=== PATIENT | female | born 1945 | race Two or more races ===

== ENCOUNTER → 2024-07-24 | Outpatient (CLI) | payer MEDICARE, BC, SELFPAY ==
--- NOTE | 2024-07-24 09:30 | XR_ITS ---
Examination: Screening digital mammography, bilateral Computer aided detection 3-D breast Tomosynthesis, bilateral Date and time of exam: July 24, 2024 0850 hours Compared to mammograms dating to March 17, 2015 Indication: Screening Technique: Nonmagnified MLO, CC views of the breasts to been obtained, reconstructed from 3-D Tomosynthesis images. R2 computer aided detection program utilized for evaluation of suspicious masses and/or abnormal calcifications. 3-D Tomosynthesis images obtained. Findings: Scattered areas of fibroglandular density. Breast biopsy marker retroareolar region right breast Benign calcifications No interval suspicious masses Impression: BI-RADS category II: Benign Findings. Recommend 1 year follow-up mammogram.
== END | disposition home or self-care (01) ==
LOC: CDIM 08:41
PROVIDERS: Referring Provider Family Medicine; Visit Provider Family Medicine
DX: Z12.31 Encounter for screening mammogram for malignant neoplasm of breast (principal); R92.323 Mammographic fibroglandular density, bilateral breasts; R92.1 Mammographic calcification found on diagnostic imaging of breast
CPT/HCPCS: 77063; 77067

== ENCOUNTER → 2024-09-08 | Outpatient (CLI) | payer MEDICARE, BC, SELFPAY ==
--- NOTE | 2024-09-08 14:17 | XR_ITS ---
Examination: CT brain head without contrast. 2-D sagittal coronal reconstructions Date and time of exam:September 08, 2024 1500 hours INDICATIONS: Patient fell today with injury to the left side of the head, head pain COMPARISON: November 13, 2021 CTDI: vol (mGy):45 DLP: (mGycm):835 Technique: Multiple CT axial sections of the brain have been obtained, 5 mm slice thickness. Contrast has not been administered. 2-D sagittal, coronal reconstructions have been obtained Low dose protocols were performed. One or more of the following dose reduction techniques were used; automated exposure control, adjustment of the mA and/or KV according to patient size, use of iterative reconstruction technique. Findings: No significant ventricular enlargement. Intra-axial or extra-axial hemorrhage density is not seen. No mass effect or midline shift Basal cisterns are not remarkable. Fourth ventricle is midline. Cranial vault intact. Impression: Negative for acute hemorrhage, mass effect or midline shift
--- NOTE | 2024-09-08 14:28 | XR_ITS ---
Examination: PA lateral chest 2 views TECHNIQUE: Upright PA lateral chest 2 views Exam date and time: September 08, 2024 1441 hours INDICATIONS: Patient fell today with into the chest, chest pain FINDINGS: Marked size No pneumothorax. Clavicles, ribs, thoracic vertebral bodies appear intact IMPRESSION: No pneumothorax pulmonary contusion or hemothorax
--- NOTE | 2024-09-08 14:28 | XR_ITS ---
Examination: Hand, left 3 views Technique: Hand AP, oblique, lateral 3 views Date and time of exam: September 08, 2024 1451 hours INDICATIONS: Patient fell today with injury to the hand, hand pain. FINDINGS: Severe osteopenia No acute fracture No dislocation IMPRESSION: Severe osteopenia No acute fracture Given the severe osteopenia, suggest short-term follow-up hand films to assess for occult fracture as clinically warranted
== END | disposition home or self-care (01) ==
PROVIDERS: PCP Family Medicine; Referring Provider Nurse Practitioner Family; Visit Provider Nurse Practitioner Family
DX: S09.90XA Unspecified injury of head, initial encounter (principal); S69.92XA Unspecified injury of left wrist, hand and finger(s), initial encounter; S29.9XXA Unspecified injury of thorax, initial encounter; W18.30XA Fall on same level, unspecified, initial encounter; M85.842 Other specified disorders of bone density and structure, left hand
CPT/HCPCS: 70450; 71046; 73130

== ENCOUNTER → 2024-09-30 | Outpatient (CLI) | payer MEDICARE, BC, SELFPAY ==
--- NOTE | 2024-09-30 13:20 | XR_ITS ---
Examination: Bone densitometry Date and time of exam:September 30, 2024 1331 hours INDICATIONS: Menopause age 55, hysterectomy age 56, diabetic diagnosis calcium and vitamin D 41 years, personal history osteopenia Technique: Lumbar spine and hip total bone mineralization values of an calculated. Peak reference and age match control results have been displayed. Findings: Lumbar spine total bone mineralization is0.851 gm/cm2. This is 1.8 standard deviations below peak reference. This is 0.8 standard deviations above age-matched controls. Hip total bone mineralization is 0.796 gm/cm2 This is 1.2 standard deviations below peak reference. This is 0.8 standard deviations above age-matched controls Impression: There is osteopenia based on lumbar spine measurements. There is osteopenia based on hip measurements Lumbar mineralization is increased 1.4% compared with October 25, 2018 Hip mineralization is increased 1.3% compared with October 25, 2018
--- NOTE | 2024-09-30 13:28 | XR_ITS ---
Examination: Hand, left 3 views Technique: Hand AP, oblique, lateral 3 views Date and time of exam: October 09, 2024 1451 hours INDICATIONS: Patient fell 3 weeks ago with injury to the hand, hand pain FINDINGS: Prominent osteopenia No arthritic change involving the interphalangeal joints No fracture No cortical bone destruction No opaque foreign body IMPRESSION: No fracture
== END | disposition home or self-care (01) ==
LOC: CDIM 13:09
PROVIDERS: PCP Nurse Practitioner Family; Referring Provider Nurse Practitioner Family; Visit Provider Nurse Practitioner Family
DX: M85.89 Other specified disorders of bone density and structure, multiple sites (principal); S69.92XA Unspecified injury of left wrist, hand and finger(s), initial encounter; W19.XXXA Unspecified fall, initial encounter
CPT/HCPCS: 73130; 77080

== ENCOUNTER 2025-04-05 16:52 | Emergency (ER) | payer MEDICARE, BC, SELFPAY ==
[2025-04-05 16:54] VITALS: BMI 19.8
--- NOTE | 2025-04-05 16:57 | XR_ITS ---
Examination: Forearm, left, 2 views. Technique: Forearm, AP, lateral 2 views Date and time of exam: April 05, 2025, 1718 hours INDICATIONS: Patient fell today with injury to the forearm, forearm pain. FINDINGS: Acute nondisplaced fracture distal radial metaphysis. Shafts of the radius and ulna are intact IMPRESSION: Acute nondisplaced fracture distal radial metaphysis.
--- NOTE | 2025-04-05 16:57 | XR_ITS ---
Examination: Left wrist 2 views TECHNIQUE: AP lateral left wrist 2 views Date and time: April 05, 2025, 1721 hours INDICATIONS: Injury to this today, wrist pain FINDINGS: Acute mildly impacted fracture distal radial metaphysis Carpal bones intact IMPRESSION: Acute mildly impacted nondisplaced fracture distal radial metaphysis
[2025-04-05 17:03] VITALS: BP 185/70; PULSE 71; RESP 18; TEMP 36.7; O2SAT 98; BMI 19.1
--- NOTE | 2025-04-05 17:44 | XR_ITS ---
Examination: Hand, left 3 views Technique: Hand AP, oblique, lateral 3 views Date and time of exam: April 05, 2025, 1747 hours INDICATIONS: Patient fell today with injury to the hand, hand pain. FINDINGS: Acute mildly impacted fracture distal radial metaphysis, without significant displacement. Carpal bones metacarpals and digits appear intact Significant osteopenia. IMPRESSION: Acute impacted fracture distal radial metaphysis
--- NOTE | 2025-04-05 19:01 | PD.EDRME ---
Rapid Medical Screening Exam RME Arrival date/time: 04/05/25 16:52 Chief Complaint: Hand/Wrist Problems Time Seen by Provider: 04/05/25 17:24 Vital signs: Vital Signs Temperature 98.0 F 04/05/25 17:03 Pulse Rate 71 04/05/25 17:03 Respiratory Rate 18 04/05/25 17:03 Blood Pressure 185/70 H 04/05/25 17:03 Pulse Oximetry (%) 98 04/05/25 17:03 Oxygen Delivery Method Room Air 04/05/25 17:03 Vital signs reviewed by provider: Yes RME Narrative: Patient is a 80-year-old female is in the emerged from with concerns for left wrist pain. Patient stated that she tripped and fell landed onto her hand. Presents today with left hand and left wrist pain. Patient takes aspirin does not take any blood thinners. Did not hit her head did not lose consciousness.
--- NOTE | 2025-04-05 19:58 | EDNOTE_ITS ---
Upper Extremity Injury RME/HPI General Chief Complaint: Hand/Wrist Problems Stated Complaint: INJURY TO LEFT WRIST/FOREARM YESTERDAY Time Seen by Provider: 04/05/25 17:24 Arrival date/time: 04/05/25 16:52 This is a case of 80-year-old female who came in the emergency room due to left wrist and hand pain with swelling since yesterday history of present illness started yesterday patient was tripped and fell on his commode and landed on his left wrist and hand patient noted to have severe pain on the left wrist and left hand this patient decided to sought consult here in the emergency room patient is not taking any blood thinner only aspirin patient denies any head neck chest or abdominal injury no loss of conscious denies any numbness weakness or tingling sensation Limitations: no limitations RME / HPI RME / HPI narrative: Patient is a 80-year-old female is in the emerged from with concerns for left wrist pain. Patient stated that she tripped and fell landed onto her hand. Presents today with left hand and left wrist pain. Patient takes aspirin does not take any blood thinners. Did not hit her head did not lose consciousness. Related Data Previous Rx's ?Medication ?Instructions ?Recorded tramadol 25 mg tablet 25 mg PO Q6H PRN pain #10 ta bs 04/05/25 Allergies Allergy/AdvReac Type Severity Reaction Status Date / Time No Known Allergies Allergy Verified 04/05/25 16:56 Review of Systems Review of Systems Systems Reviewed: All systems reviewed, normal except as documented Constitutional Constitutional: Reports system reviewed and no additional complaints, except as documented and Reports as per HPI Cardiovascular Cardiovascular: Reports system reviewed and no additional complaints, except as documented and Reports as per HPI Respiratory Respiratory: Reports system reviewed and no additional complaints, except as documented and Reports as per HPI Gastrointestinal Gastrointestinal: Reports system reviewed and no additional complaints, except as documented and Reports as per HPI Genitourinary Genitourinary: Reports system reviewed and no additional complaints, except as documented and Reports as per HPI Musculoskeletal Musculoskeletal: Reports system reviewed and no additional complaints, except as documented, Reports as per HPI and Reports other (Left wrist and hand pain) Integumentary/Breasts Skin/Breast: Reports system reviewed and no additional complaints, except as documented and Reports as per HPI Past Medical History Past Medical History NEUROLOGIC: Negative Neurological Disorders or Seizures CARDIAC: Positive Cardiac Disorders, Hypercholesterolemia and Hypertension; Negative Congestive Heart Failure RESPIRATORY: Negative Chronic Obstructive Pulmonary Disease (COPD) GASTROINTESTINAL: Positive Gastrointestinal Disorders GENITOURINARY: Negative Genitourinary Disorders or Renal Disease REPRODUCTIVE: Negative Pelvic Inflammatory Disease MUSCULOSKELETAL: Negative Musculoskeletal Disorders ENDOCRINE: Positive Endocrine Disorders and Diabetes Mellitus Type 2; Negative Diabetes Mellitus Type 1 HEMATOLOGIC: Negative Blood Disorders OTHER HISTORY: Negative Autoimmune Disease, Anesthesia Reactions, MRSA, Clostridium Difficile or Cancer Surgical History SURGICAL: Positive Hysterectomy Social History SMOKING STATUS: Never smoker ED Exam General Limitations: Present no limitations General appearance: Present alert, in no apparent distress and other (Patient is awake alert oriented not in distress nontoxic looking well-hydrated well-nou rished) Head Head exam: Present atraumatic Eye Eye exam: Present normal appearance, PERRL and EOMI ENT ENT exam: Present normal exam, normal oropharynx and mucous membranes moist Neck Neck exam: Present normal inspection, full ROM and trachea midline; Absent tenderness Chest Chest inspection: Present normal inspection and symmetric chest wall rise; Abse nt tenderness Respiratory Respiratory exam: Present normal lung sounds bilaterally Cardiovascular Cardiovascular exam: Present regular rate, normal rhythm and normal heart sounds; Absent bradycardia, tachycardia, irregular rhythm, systolic murmur or diastolic murmur Abdominal Exam Abdominal exam: Present soft and normal bowel sounds Extremities Exam Extremities exam: Present normal inspection and full ROM Expanded Upper Extremity Exam Forearm/Wrist exam: Present tenderness, swelling and other (Patient noted to have moderate tenderness and swelling no crepitation no deformity no redness no cellulitis ROM limited neurovascular intact); Absent abrasion, laceration, ecchymosis, deformity, crepitus, dislocation, erythema, tenderness over anatomical snuff box or pain with axial thumb loading Hand exam: Present tenderness, swelling and other (Moderate tenderness on the dorsal aspect of the left hand with mild swelling ROM limited due to pain neurovascular intact no snuffbox tenderness); Absent abrasion, laceration, skin avulsion, ecchymosis, crepitus, dislocation, erythema, amputation, nail avulsion or subungual hematoma Back Exam Back exam: Present normal inspection and full ROM Neurological Exam Neurological exam: Present alert, oriented X3, CN II-XII intact, normal gait and reflexes normal; Absent motor sensory deficit Psychiatric Psychiatric exam: Present normal affect and normal mood Skin Skin exam: Present warm, dry, intact and normal color Course Quality Measures none Orders Category Date Time Status XR forearm LT 2V Stat Exams 04/05/25 16:57 Completed XR hand comp LT min 3V Stat Exams 04/05/25 17:44 Completed XR wrist LT 2V Stat Exams 04/05/25 16:57 Completed Vital Signs Vital signs: Vital Signs Temperature 98.0 F 04/05/25 17:03 Pulse Rate 71 04/05/25 17:03 Respiratory Rate 18 04/05/25 17:03 Blood Pressure 185/70 H 04/05/25 17:03 Pulse Oximetry (%) 98 04/05/25 17:03 Oxygen Delivery Method Room Air 04/05/25 17:03 Patient oxygen saturation is 98% in room air BP was rechecked and noted to be 145/70 Extremity Injury MDM Narrative MDM Narrative:: This is a case of 80-year-old female who came in the emergency room due to left wrist and hand pain with swelling since yesterday history of present illness started yesterday patient was tripped and fell on his commode and landed on his left wrist and hand patient noted to have severe pain on the left wrist and left hand this patient decided to sought consult here in the emergency room patient is not taking any blood thinner only aspirin patient denies any head neck chest or abdominal injury no loss of conscious denies any numbness weakness or tingling sensation patient is awake alert oriented not in distress nontoxic looking well-hydrated well-nourished there is a moderate tenderness on palpation on the left wrist and left hand with mild swelling with mild bruising no crepitation no deformity no redness ROM limited neurovascular intact no snuffbox tenderness on the left hand x-ray showed a nondisplaced radial metaphysis fracture of the left wrist a splint and sling was applied patient tolerated well neurovascular intact RICE treatment will continue by the patient and by the daughter at home they are well-informed that they need to see an orthopedic surgeon tomorrow for reevaluation of the fracture they will follow-up with PCP in 2 days for reevaluation worsening symptoms or any emergent concern return to the emergency room immediately or call 911 Patient was discharged with comfortable condition walking with stable gait. Patient verbalized no further complains explained diagnosis and answered patient question. Patient is comfortable with the proposed management plan including the need to follow up with his/her primary care physician and any specialist if applicable Discussed patient for any urgent condition or worsening sx, He/She needed to go to emergency room immediately or call 911. Patient acknowledge the responsibility to follow up as instructed and to monitor her/his symptoms. For any persistence of the symptoms for more than 3-5 days return precaution advised. Discussed the result of the test and was given printed discharge instruction Patient data External records reviewed:: [facility] previous records Clinical information provided by:: patient and family Social determinants that could affect healthcare access:: none (None) Patient has the following chronic illnesses:: None How is presenting disease/condition affected by chronic disease/condition?: no chronic disease Evaluation data The following diagnostics were reviewed and interpreted by me:: radiology exam(s) Lab and/or radiology exams considered but not ordered:: Reviewed Interpretation Summary: Reviewed Medications / Prescriptions Medications or Prescriptions considered but not ordered:: Given Medication administrations:: Given Consultations Consultation(s) initiated? (list below): No Diagnosis Upper Extremity Injury Differential Diagnosis: sprain and strain of wrist and other (Wrist fracture) Most likely diagnosis given after review of the tests above:: Distal radial metaphysis fracture Admission Indicated Admission indicated?: not indicated Explain why admission is indicated or not indicated:: Not indicated Admission Request Was there a request for admission?: No Admission Attestation Admission request attestation: Not indicated Disposition Plan Disposition Plan: Discharge Discharge Attestation Discharge Attestation: The patient and all family members were given an opportunity to ask questions and understood the discharge instructions. Discharge instructions specifically effects, indications for sooner follow up or return to the emergency department, and the expected course of current diagnosis. Patient condition: Stable Discharge Plan Plan Patient Disposition: HOME (Self Care) Patient condition on transfer: Stable Prescriptions/Referrals Prescriptions/Med Rec: New tramadol 25 mg tablet 25 mg PO Q6H MDD max 4 tabs per day PRN (Reason: pain) Qty: 10 0RF Referrals: Jose Mcrae MD [Primary Care Provider] - In 1 week Aldo Ferguson MD [Physician] - 04/06/25 (For further evaluation and treatment of distal radial metaphysis fracture left) Problem List Clinical Impression: Fall, Closed fracture of metaphysis of distal end of left radius, Hand sprain Patient/Caregiver Discharge Instructions Education Materials: Preventing Falls Moving Safely ..., Wrist Fracture, ED Forearm Fx Wo Redu, ED Splint Care, Fiberglass, ED Hand Sprain Additional Instructions: Follow-up with your primary care physician in 2 days for reevaluation and to be referred to orthopedic surgeon for further evaluation and treatment of distal radial metaphysis fracture left wrist for any worsening symptoms or any emergent concerns such as numbness weakness tingling sensation call 911 or go to the nearest emergency room ice pack every 2 hours for 20 minutes for 24 hours then alternate with warm compress keep the splint and sling in place until cleared by your primary care physician take medication as directed elevate to decrease swelling is advised Print Language: Latvian Stand Alone Forms: Rubina Award Info., Patient Portal Info Letter PA/CASEWORKER INTAKE Supervising Physician PA/CASEWORKER INTAKE Supervising Physician: Dr. Valero
== END 2025-04-05 20:31 | disposition home or self-care (01) ==
PROVIDERS: Emergency Provider Emergency Medicine; PCP Family Medicine
DX: S52.502A Unspecified fracture of the lower end of left radius, initial encounter for closed fracture (principal); W01.0XXA Fall on same level from slipping, tripping and stumbling without subsequent striking against object, initial encounter
CPT/HCPCS: 29125; 73090; 73100; 73130; 99283

== ENCOUNTER → 2025-04-16 | Outpatient (CLI) | payer MEDICARE, BC, SELFPAY ==
--- NOTE | 2025-04-16 | XR_ITS ---
Examination: Left wrist 2 views Technique one AP lateral left wrist 2 views Date and time: April 16, 2025 0754 hours, comparison April 05, 2025 INDICATIONS: Acute fracture distal radial metaphysis April 05, 2025 FINDINGS: Significant partial healing fracture distal radial metaphysis with stable and satisfactory alignment IMPRESSION: Significant partial healing fracture distal radial metaphysis with stable and satisfactory alignment
== END | disposition home or self-care (01) ==
LOC: CDIM 07:26
PROVIDERS: PCP Family Medicine; Referring Provider Orthopaedic Surgery; Visit Provider Orthopaedic Surgery
DX: S52.532A Colles' fracture of left radius, initial encounter for closed fracture (principal); X58.XXXA Exposure to other specified factors, initial encounter
CPT/HCPCS: 73100

== ENCOUNTER → 2025-05-08 | Outpatient (CLI) | payer MEDICARE, BC, SELFPAY ==
--- NOTE | 2025-05-08 | XR_ITS ---
Examination: Wrist, left 3 views Technique: Wrist AP, oblique, lateral 3 views Date and time of exam: May 08, thousand 25, 0754 hrs. Indications: Acute fracture radius April 04, 2025 Findings: Partial healing fracture distal radial metaphysis with stable and satisfactory alignment Prominent osteopenia Impression: Partial healing fracture distal radius with stable and satisfactory alignment
== END | disposition home or self-care (01) ==
PROVIDERS: PCP Nurse Practitioner Family; Referring Provider Orthopaedic Surgery; Visit Provider Orthopaedic Surgery
DX: S52.92XA Unspecified fracture of left forearm, initial encounter for closed fracture (principal); X58.XXXA Exposure to other specified factors, initial encounter
CPT/HCPCS: 73110